=== PATIENT | female | born 1970 | race Caucasian/White ===

== ENCOUNTER → 2018-11-22 | Outpatient (CLI) | payer OTHER ==
--- NOTE | 2018-11-22 20:19 | MAM ---
EXAM DESCRIPTION: 3D Screening BILATERAL : Digital Mammography. CLINICAL HISTORY: 48 years Female ANNUAL SCREENING . No complaints. No personal or family history of breast cancer. Menarche age 14. Childbirth. Menstrual status unknown. No HRT. Lifetime risk of developing breast cancer (Tyrer-Cuzick model)(%): 9.6. COMPARISON: 2-D digital screening bilateral mammography 07/27/2013. TECHNIQUE: Bilateral CC and MLO projection full-field images, digital tomosynthesis mammographic technique. Bilateral digital 2-D full-field MLO images. CAD not available for tomosynthesis or 2-D images. FINDINGS: The breast parenchymal density pattern is: Scattered areas of fibroglandular density. No skin thickening or nipple retraction. Right axillary lymph nodes. Nodular-type fibroglandular tissues bilaterally. Bilateral solitary microcalcifications. No new focal, stellate mass or density, focal asymmetry , and no suspicious microcalcifications bilaterally. Stable mammograms compared to prior study. Taking into account, differences in mammographic technique. IMPRESSION: Benign exam. BIRAD CATEGORY: 2 BENIGN FINDINGS. RECOMMENDATIONS: FOLLOW UP: Routine digital bilateral mammographic screening, one year interval from November 2018. Written communication explaining the IMPRESSION and follow-up, will be mailed to the patient and referring health care provider. According to the [employer], yearly mammograms are recommended starting at age 40 and continuing as long as a woman is in good health. Any breast change noted on a breast self-exam should be reported promptly to the patient's healthcare provider. Breast MRI is recommended for women with an approximately 20-25% or greater lifetime risk of breast cancer, including women with a strong family history of breast or ovarian cancer and women who have been treated for Hodgkin's disease. A negative mammographic report should not delay tissue diagnosis in patients with significant clinical history or physical findings. Extremely dense breast tissue limits the sensitivity of digital mammography. Electronically signed by: Oneal Garcia MD 11/22/2018 8:18 PM CDT
--- NOTE | 2018-11-23 07:49 | CT ---
EXAM DESCRIPTION: Abdomen/Pelvis w/wo Contrast: Computed Tomography. CLINICAL HISTORY: RUQ PAIN COMPARISON: Screening mammogram on this visit. TECHNIQUE: Spiral-axial scans at 5 x 5 mm intervals through the abdomen and pelvis before and after 75 mL Optiray 320 nonionic IV contrast. No oral contrast. Coronal and sagittal 2 mm reconstructions. No extravasation of contrast at the injection site. Treated with hot compress. Minimal swelling and firmness on physical examination. No other symptoms. Decreased contrast visualized on the images. Total Exam DLP 1487.37 mGy - cm. This exam was performed according to our departmental CT dose-optimization program which includes automated exposure control, adjustment of the mA and/or kV according to patient size and/or use of iterative reconstruction technique; to reduce radiation dose to as low as reasonably achievable (ALARA). FINDINGS: Lung bases and pleura: Pleural parenchymal scarring in the right lower lobe. Liver, Stomach, Spleen, Adrenal Glands: Negative. Pancreas, Gallbladder, Ducts: Gallbladder visualized. Duct and pancreas unremarkable. Kidneys and Ureters: Negative. Mesentery: Unremarkable. Aorta: Minimal atherosclerotic calcifications. Normal outer caliber. Small Bowel: Negative. Terminal Ileum/Cecum: Normal caliber of the TI. Cecum minimally distended by fecal matter. Normal caliber of the appendix. No inflammatory changes. Colon: Diffuse fecal matter in the colon more on the ascending and transverse segments. Pelvic Organs: Vaginal cuff is negative. Ovaries not seen. No radiodense stones in the bladder. No fluid in the cul-de-sac. Spine and Bony Pelvis: Disc space narrowing L5-S1. Abdominal Wall/Back Soft Tissues: Minimal diastases at the umbilicus not containing bowel. IMPRESSION: 1. Minimal to moderate constipation in the colon. 2. No free air or free fluid. No inflammatory changes in the peritoneal or retroperitoneal compartments. Consider radionuclide hepatobiliary imaging and/or gallbladder ultrasound. Electronically signed by: Oneal Garcia MD 11/23/2018 7:47 AM CDT
== END ==
LOC: CT 08:00
PROVIDERS: ATTEND Family Medicine
DX: Z12.31 Encounter for screening mammogram for malignant neoplasm of breast (principal); K59.00 Constipation, unspecified

== ENCOUNTER → 2018-11-30 | Outpatient (CLI) | payer OTHER ==
--- NOTE | 2018-12-01 11:46 | NM ---
EXAM DESCRIPTION: Hepatobiliary w/CCK: Nuclear Medicine. CLINICAL HISTORY: RIGHT UPPER QUADRANT ABDOMINAL PAIN COMPARISON: CT scan of abdomen and pelvis 22 November 2018. TECHNIQUE: Patient was given 8.4 mCi of technetium 99 M mebrofenin (Choletec) radiopharmaceutical IV. Anterior gamma camera images were obtained of the right upper quadrant at 5 minute intervals for one hour . The patient was then given 1.7 mcg CCK (Kinevac). IV infusion over 30-minute interval. Gallbladder ejection fraction was evaluated by measuring diminishing radioactivity in the gallbladder, over 30 min interval. FINDINGS: After administration of radiopharmaceutical, prompt visualization of the entire liver. Timely visualization of intrahepatic ducts, common bile duct, pancreas, and small intestine. After administration of CCK (IV, there were no symptoms reproduced. Activity in the gallbladder 42% in the first 10 minutes, 55% in the first 20 minutes, with no significant change in the last 10 minutes. IMPRESSION: No intrahepatic or extrahepatic biliary tract obstruction . Normally gallbladder ejection fraction. Electronically signed by: Oneal Garcia MD 12/01/2018 11:45 AM CDT
== END ==
LOC: NM 08:00
PROVIDERS: ATTEND Surgery
DX: R10.11 Right upper quadrant pain (principal)